=== PATIENT | female | born 1995 | race Caucasian/White ===

== ENCOUNTER 2017-08-12 08:00 | Outpatient (RCR) | payer OTHER, SELFPAY ==
--- NOTE | 2017-08-09 12:48 | HP.OTEVAL ---
Patient's Visit Information HERBIE MILLER is a 21 year old F, referred to Occupational Therapy by DR.RHUTSO Sundar, with a diagnosis of cellulitis of right Lower Extremity. Date of Evaluation: 08/09/17 Occupational Therapist: Conchita Simmons, MILO/Yuliana, CHT - Subjective Subjective: Pt returns to center as she is having cellulitis infections about every other month. Pt has compression socks and they are 20-30mmHg and wears the compression socks when she is working- pt is working 40 hours a week standing- pt works at [employer]. pt states she is using coconut oil on her skin. pt state her symptoms are vomiting, chills and then legs break out. pt states she has had this symptom the last 4 times-.pt would like to beign use of wraps to assist in mtg of her lymphedema - Lymphedema (Circumferential Measure) Mid-foot: right 24.5 left 23.5 Ankle: right 28cm left 27.5 Lower calf: right 36cm left 35cm Largest calf: right 49cm left 49cm Below knee: right 40cm left 39cm - Goals Demonstrate a 20% reduction in edema by d/c: Yes Demonstrate adequate knowledge of self-bangaging by 1st week: Yes Demonstrate adequate knowledge of self-massage by 2nd week: Yes Demonstrate adequate knowledge skin care/prec by 2nd week: Yes Demonstrate adequate knowledge therapeutic exercises by d/c: Yes Select approp compression garment w/donning/care/wear by d/c: Yes Voice need to replace compression garment every 4-6mo by dc: Yes - Rehabilitation General Assessment: pt returns to this clinic due to recurrrent cellulitis- pt was seen 2016 and pt states she is using compression hose during the day while at work, but admits not as much at home. The compression socks she is currently using do not provide compression to her toes. pt was advised to get toe caps or to get custom compression socks with toe caps. pt demo understanding. Pt also advise to look at compression socks made with siver as she has had a number of infections. pt demo understanding- pt to return to therapy 1x week for 3-4 weeks for tx in LE wrap including toe wrapping. once pts has gained understanding in mtg of LE lymphedema with wrapping and compression device pt will be D/C with [facility]P Rehabilitation Potential: Good - Anticipated Interventions Anticipated Interventions: Education re Diagnosis, Manual Lymph Drainage, Education re Life-long lymphedema Management, Education re Self-Bandaging Techniques, Education re Skin Care and Precautions, Education re Self Massage Techniques, Education re Correct Donning Tech,Care&Wearing Sched Comp Garments - Visit Plan Frequency: 1x/Week Duration: 4 Weeks TEXT: Thank you for the opportunity to evaluate your patient. For Medicare and Medicare HMO plans, please review the plan of care and approve it. It will need to be FAXED BACK to us at [phone] for Medicare purposes. Please let me know if there are questions or concerns regarding this plan of care. Physician Signature: Date:
--- NOTE | 2017-10-13 13:17 | HP.OT.NRP ---
HP - Discharge Summary - Patient Information HERBIE MILLER was seen in my office for initial evaluation on 08/09/17. The following Plan of Care was established for this patient: Initial Frequency: 1x/Week Initial Duration: 4 Weeks Plan: pt to cont with short strech wrap to BLE with toes for night and use compression socks during the day- pt to get new compression socks. - Anticipated Interventions Anticipated Interventions: Education re Diagnosis, Manual Lymph Drainage, Education re Life-long lymphedema Management, Education re Self-Bandaging Techniques, Education re Skin Care and Precautions, Education re Self Massage Techniques, Education re Correct Donning Tech,Care&Wearing Sched Comp Garments This patient was last seen in our office 08/12/17. Pertinent comments regarding their Occupational therapy will appear below: PT was seen two visits- pt using short stretch wraps until she was to get her compressions socks- pt was to return to ensure fit of socks- pt has not returned at this time and is currently D/C due to time laps in pts therapy sessions. At this point I will be discontinuing this patient from occupational therapy. I would be happy to see this patient again in the future if found appropriate by the physician. Thank you! Conchita Simmons, OTR/L, CHT
== END 2017-08-12 19:00 | disposition home or self-care (01) ==
LOC: OT 08:00
PROVIDERS: Family Provider Family Medicine; PCP Family Medicine; Visit Provider Family Medicine
DX: L03.115 Cellulitis of right lower limb (principal); I89.0 Lymphedema, not elsewhere classified
CPT/HCPCS: 97140; 97166; 97530

== ENCOUNTER 2019-06-13 19:39 | Emergency (ER) | payer OTHER, SELFPAY ==
[2019-06-13 19:39] VITALS: BP 140/101; PULSE 135; RESP 24; TEMP 37.5; O2SAT 100; BMI 36.8
--- NOTE | 2019-06-13 20:46 | ED.VISSUMM ---
- ER Visit Summary Date of Service: 06/13/19 Chief Complaint: Fall with right forearm pain and lacerations History of Present Illness: The patient is a 23 F right-hand dominant. No significant past medical or surgical history. Patient states she slipped and fell on the ice and landed awkwardly on her right forearm on a brick causing 1 large laceration and several smaller lacerations in the midportion of her forearm. She is also complaining of forearm pain. She denies hitting her head or any other injuries. No LOC. Physical Examination: Female vital signs are stable. She is afebrile. She is tachycardic because she is anxious and nervous. HEENT exam unremarkable atraumatic. Pupils round reactive light. No signs of trauma to face or scalp. C-spine nontender. Lungs clear to auscultation. Heart tachycardic no murmur. Chest wall nontender. Abdomen soft nontender normal bowel sounds no peritoneal signs. Pelvic girdle intact. Left upper extremity and both lower extremities are nontender normal range of motion neurovascular intact. Back nontender. Her right upper extremity shoulder and elbow are nontender. Humerus is nontender. Her right forearm is bruised. There is a large laceration on the lateral ulnar side of her right forearm. She also has 2 small lacerations on the dorsum of her right forearm. There is mild oozing of blood. There is no gross bony deformity. She has a palpable radial pulse. Normal validation specialist strength. Normal touch sensation her right hand. She does complain of pain to palpation of the right forearm. Neurologically she is awake alert with no focal motor or sensory deficits. Test Results: Right forearm x-ray 2 views read by myself shows no acute abnormality. No fracture. No foreign body. There is subcu air consistent with the laceration. Read both by myself and the radiologist. Emergency Department Course and Treatment: Suture repair right forearm laceration(s). Large laceration ulnar side midportion right forearm. Large laceration is approximately 4 to 5 inches in length. It is L-shaped. Involves the skin and subcu tissue. There is mild oozing. There is no pulsatile bleeding. The wound was locally anesthetized with lidocaine. Was washed with saline copiously irrigated and explored. I did not see any foreign body. No bony fragments. No obvious tendon or arterial injury. It was closed using 10 simple interrupted 4-0 Ethilon sutures. Proper hemostasis wound closure was obtained. Laceration #2 2 cm in length. Washed with saline and cleaned with Shur-Clens irrigated. Locally anesthetized with lidocaine and closed using 2 simple interrupted 4-0 Ethilon sutures. Laceration #3: 2 cm laceration. Locally anesthetized lidocaine. Cleaned with Shur-Clens. Explored irrigated and washed with saline. Closed using 2 simple interrupted 4-0 Ethilon sutures. Laceration #4 2 cm in length. Local anesthetized lidocaine. Cleaned with Shur-Clens. Explored, irrigated and washed with saline. Closed using 2 simple erupted 4-0 Ethilon sutures. Proper hemostasis wound closure was attained on all 4 lacerations. Patient tolerated procedure well. They are instructed on wound care. Return for any signs of infection. And suture removal in 14 days. Treatment Plan: Patient has several antibiotic allergies. Should be placed on clindamycin 300 mg 4 times daily for 5 days 15 no refill. [place] for pain 20 no refill. Also ice and elevate. Motrin for pain. Disposition: Discharged Impression: Acute fall Right forearm large laceration(s) x4 all repaired. Laceration #1 was 10 cm in length Laceration #2 was 2 cm in length Laceration #3 2 cm in length Laceration #4 2 cm in length This note was generated with [employer] dictation software. It may contain incorrect words, spelling, and punctuation that were not noted in review of the chart prior to signing ED Disposition - Plan for ED Patient: Referrals: Jason Niño MD [Primary Care Provider] -
--- NOTE | 2019-06-13 21:00 | RAD_ITS ---
STUDY: X-RAY - RIGHT RADIUS AND ULNA REASON FOR EXAM: Female, 23 years old. RIGHT ARM LACERATION TECHNIQUE: 2 view(s) of the forearm. COMPARISON: None. FINDINGS: There is a laceration on the dorsal side of the forearm that its largest component measures at least 2.8 x 0.8 cm. There is gas in the soft tissues. A foreign body or fracture is not visualized. Normal visualized radius. Normal visualized ulna. RAD/Forearm 2 Views IMPRESSION: Soft tissue laceration. No visualized fracture or foreign body. Electronically Signed: Concha Mccollum MD at 21:24 EST Tel , Service support ,
[2019-06-13 21:39] VITALS: RESP 18
[2019-06-13] MEDS: HYDROcodone Bitartrate/Apap 5/325 Tablet PO (21:50)
--- NOTE | 2019-06-13 23:26 | DCINST.ED_ITS ---
ED Disposition - Plan for ED Patient: Disposition: Home or Assisted Living Instructions: LACERATION, Extrem (Suture, Staple or Tape) Prescriptions: Clindamycin [Cleocin] 300 mg PO 4X/DAY 5 Days cap Prescription Printed Hydrocodone Bitart/Apap 5-325 [[place] 5MG-325MG] 1 tab PO Q4H PRN PRN 4 Days #20 tab PRN Reason: Pain Prescription Printed Referrals: Jason Niño MD [Primary Care Provider] - 10-14 Days suture removal Additional Instructions: Ice and elevate your right forearm to decrease pain and swelling. Motrin for pain and swelling and [place] for more severe pain. Do not drive or drink alcohol with the [place]. Clean the wounds daily with soap water peroxide and water. Apply antibiotic ointment daily. Stitches should come out in no less than 10 and I would strongly consider going 14 days. Watch for any signs of infection such as pus, redness or fever seen return.
[2019-06-13 23:41] VITALS: BP 129/91; PULSE 111; RESP 16; O2SAT 99
== END 2019-06-13 23:43 | disposition home or self-care (01) ==
PROVIDERS: Emergency Provider Emergency Medicine; PCP Family Medicine
DX: S51.811A Laceration without foreign body of right forearm, initial encounter (principal); W00.0XXA Fall on same level due to ice and snow, initial encounter; Y93.9 Activity, unspecified; Z72.0 Tobacco use
CPT/HCPCS: 12005; 73090; 99284